=== PATIENT | female | born 1995 | race Caucasian/White ===

== ENCOUNTER 2017-08-15 01:02 | Emergency (ER) | payer SELFPAY ==
[~2017-08-15] VITALS: Ht 160 cm; Wt 57.0 kg
[2017-08-15 01:07] VITALS: TEMP 37; Ht 160 cm; Wt 57.0 kg
[2017-08-15] MEDS ORDERED: CEFTRIAXONE SOD INJ 1 GM ADDVIAL IV STA (01:22)
[2017-08-15] MEDS ORDERED: LORAZEPAM 2 MG/ML 1 ML VIAL IV STA (01:41)
[2017-08-15] MEDS ORDERED: BUPIVACAINE 0.5 % 5 MG/1 ML MPF 30ML VIAL INFIL ONE (01:45)
[2017-08-15] MEDS ORDERED: XYLOCAINE 1%/SOD BICARB 20 ML VIAL INFIL ONE (01:45)
[2017-08-15 01:48] LABS: BASO % 0.4 %; BASO ABS # 0.04 K/uL (0-0.2); COMPLETE YES; EOS % 0.3 %; HEMATOCRIT 39.7 % (37-47); IG% 0.2 %; LYMPH ABS # 4.41 K/uL (1.2-3.4); MEAN CELL VOLUME 83.6 fL (80-100); MEAN CORPUSCULAR HEMOGLOBIN 26.9 pg (25-34); MEAN CORPUSCULAR HGB CONC 32.2 g/dl (32-36); MONO % 6.2 %; NEUT % 46.9 %; PLATELET COUNT 292 K/uL (130-400); RED BLOOD COUNT 4.75 M/uL (4.2-5.4); WHITE BLOOD COUNT 9.59 K/uL (4.8-10.8)
[2017-08-15] MEDS ORDERED: MoRPHine SULFATE 4 MG/ML 1 ML CARP\\VIAL IV ONE (02:15)
[2017-08-15 02:19] LABS: ALB/GLOB RATIO 0.9 (0.9-2); BUN/CREATININE RATIO 18.4 (10-20); CALCIUM 9.3 mg/dl (8.5-10.1); CREATININE 0.83 mg/dl (0.60-1.20)
[2017-08-15] MEDS ORDERED: BCPILLS PO (02:27)
[2017-08-15 03:30] VITALS: PULSE 100; O2SAT 98
--- NOTE | 2017-08-15 04:08 | Medical Consult ---
Consultation Note Date of Service Aug 15, 2017. Consultation Note CHIEF COMPLAINT: Left middle and ring finger injuries. 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 She was brought to the hospital by EMS. I was consult did due to the loss of the tips of the fingers which were brought in to the hospital as well as. She is right-hand dominant. Past medical history: Denies. past surgical history: Oral surgery. MEDICATIONS: control. ALLERGIES: Penicillin and amoxicillin. FAMILY HISTORY: Noncontributory. SOCIAL HISTORY: She is a [employer] student from [place]. Denies smoking. Admits occasional alcohol use. REVIEW OF SYSTEMS: Prior to this incident, she was feeling in her usual health. A 10-point review of systems from the ER is noted in the medical record. PHYSICAL EXAM: Patient is anxious, but in no acute distress breathing easily at 18 breaths per minute. The patient ambulates with a normal gait. They have an appropriate mood and affect. They weigh 57 kg and are 160 cm tall. Focusing on her left middle and ring fingers, she has transverse amputations of the distal tips with significant loss of the nail-bed of the ring finger. There is no active bleeding. Her sensation to light touch is intact up to the lacerations. She is able to flex at the DIP and PIP joints as well as have full extension. There is obvious exposed bone. The tips which were mostly skin and subcutaneous fat, were brought in and bags on ice with some of the nail -bed attached to both pieces. There is some bone in both is well. RADIOGRAPHS: Show comminuted distal phalanx fractures of the middle and ring finger. IMPRESSION: Partial transverse amputation involving the nailbed of both the left and middle fingers, open tuft fractures, emergency room and initial visit. PLAN: After a lengthy discussion with the patient regarding my above clinical findings, as well as reviewing her radiographs, I explained the importance of performing an irrigation and debridement and covering the bone. She understands that the bone may need to be shortened to allow soft tissue coverage. The risks of the procedure were discussed and include but not limited to: Infection, bleeding, nerve damage, continued pain, possible need for additional surgery. She wished to proceed with the procedure and the informed consent was obtained by myself and signed by the patient. She was given Rocephin by the emergency room and will be continued on Zithromax for 5 days. For further details of the partial completion amputation, irrigation and debridement as well as a complex wound closure utilizing the tips of the finger for grafting purposes, please refer to my dictated operative report. She will follow-up in one week. She will ice and elevate and utilize pain medicine. She will avoid strenuous activities for the time being. The patient understood all my instructions and explanation; all their questions were satisfactorily addressed.
[2017-08-15] MEDS ORDERED: AZITTAB PO (04:10)
[2017-08-15 04:13] VITALS: BP 119/64
--- NOTE | 2017-08-15 04:14 | [facility] Operative Report ---
Operative Report Operative Date Aug 15, 2017. Pre-Operative Diagnosis Open Tuft fractures Left Middle and Ring Fingers Post-Operative Diagnosis Same Procedure(s) Performed 1) Partial completion amputations Left Middle Finger. 2) Partial complation amputation Left Ring Finger. 3) Complex wound closure using pinch graft, amputated finger tips x 2. 4) Repair L MF nailbed. 5) Irrigation and debridment L MF & L RF. Surgeon Dr. Craig Gauge Maker Apprentice Surgeon(s) Salma London PA-C (No fellow avail) Estimated Blood Loss 5 cc Findings Transverse amputations with exposed bone L MF & L RF. More extensive loss of nail bed from L RF. Remaining L MF had a laceration in the nail bed. There is no active bleeding. Her sensation to light touch is intact up to the lacerations. She is able to flex at the DIP and PIP joints as well as have full extension. There is obvious exposed bone. The tips which were mostly skin and subcutaneous fat, were brought in and bags on ice with some of the nail-bed attached to both pieces. There is some bone in both is well. Specimens n/a Drains n/a Anesthesia Digital blocks Complication(s) None Disposition ER bed Indications The patient had an acute injury to her left middle and ring fingers resulting in traumatic distal tip amputations and open tuft fractures. The patient understands the risks of surgery, which include but are not limited to: bleeding , infection, re-operation, damage to nerves and arteries, and continued pain. The patient understands all of these instructions and explanations, all of their questions have been satisfactorily addressed. The patient has elected to proceed with surgery and the informed consent administered by myself was signed. Description of Procedure After a multidisciplinary time-out was performed identifying left middle and ring fingers as the correct and operative limb, a digital block was performed in the standard fashion after prepping the metacarpal heads of each with Betadine using a total of 10 cc of 1% lidocaine plain and half percent Marcaine plain in a 50-50 mixture. The emergency room staff had given the patient Rocephin just prior to initiating the procedure. The left middle and ring fingers were prepped and draped in the usual Orthopaedic sterile fashion. The the left middle and ring fingers were copiously irrigated with dilute Betadine solution followed by copious amounts of normal saline. The avulsed tips were prepped by removing any bone and fat sharply with the scalpel and tenotomy scissors, and Rongeur. The avascular nail-bed was also removed sharply with a scalpel, leaving to grafts to place over the tips of each finger. The ring finger was performed first and some of the fragments of bone within the soft tissue as well as the main distal phalanx was shortened slightly to allow soft tissue coverage. The skin graft was sutured over top of the wound using 4-0 chromic. A false nail with aluminum foil from the sterile packaging was created and also sutured in place with 4-0 chromic, to allow for the new nail to grow if possible. The middle finger was performed next and required a little less bone removal from the distal phalanx. There was a small longitudinal laceration with in the nail-bed that was repaired with 4-0 chromic. The skin graft was sutured over top of the wound using 4-0 chromic. A false nail with aluminum foil from the sterile packaging was created and also sutured in place with 4-0 chromic, to allow for the new nail to grow if possible. The wounds were covered Xeroform, 2 x 2's, sterile 2 inch Joey, and Coban and guille taping the 2 fingers together. The sponge and needle counts were correct. POST-OP: Patient will follow-up in one week for reevaluation. She will utilize Tylenol and anti-inflammatories for pain. She will ice and elevate. She will complete a 5 day course of Zithromax. I attest to the content of the Intraoperative Record and any orders documented therein. Any exceptions are noted below.
[2017-08-15] MEDS ORDERED: NORCO 5/325MG HOME PACK PO ONE (04:30)
--- NOTE | 2017-08-15 06:48 | DIAGNOSTIC IMAGING REPORT ---
L HAND MIN 3 VIEWS ROUTINE CLINICAL HISTORY: Finger tip amputation TRAUMA. HAND SMASHED IN DOOR. COMPARISON: None. DISCUSSION: There are traumatic amputations involving the perez of the distal phalanges of the third and fourth fingers. Small fracture fragments are visualized. There is a soft tissue defect. IMPRESSION: Traumatic amputations involving the distal perez of the distal phalanges of the third and fourth fingers. Electronically signed by: Kwasi Melendez M.D. 08/15/2017 6:46 AM Dictated Date/Time: 08/15/2017 6:45 AM
--- NOTE | 2017-08-16 00:06 | EMERGENCY ROOM VISIT NOTE ---
History First contact with patient: 01:09 Chief Complaint: HAND PAIN/INJURY Stated Complaint: HAND INJURY History of Present Illness The patient is a 21 year old female who presents to the Emergency Room with complaints of injury to her left third and fourth digits that occurred approximately 30 minutes prior to arrival. The patient was drinking at a local fraternity, and evidently a very large door was closed onto her left hand. This has resulted in amputation of the distal ends of the left third and fourth digits. The patient is reportedly up-to-date on her tetanus. She rates her current discomfort a 1/10 and does not wish for pain medication at this time. She is able to open and close the hand and has not had similar injury in the past. Her last meal was approximately 5 hours ago. She had been drinking up until the last half hour. She is right-hand dominant. Review of Systems More than 10 systems were reviewed and otherwise negative with the exception of history of present illness. Past Medical/Surgical History No chronic medical disease Family History No pertinent family history Social History Smoking Status: Never Smoker Occupation Status: [employer] student Current/Historical Medications Scheduled Azithromycin (Zithromax Z-Dale), 0 PO UD Control Pills ( Control Pills), 1 TAB PO DAILY Physical Exam Vital Signs Date Time Temp Pulse Resp B/P (MAP) Pulse Ox O2 Delivery O2 Flow Rate FiO2 08/15/17 04:13 119/64 08/15/17 04:01 119/64 08/15/17 04:01 119/64 08/15/17 03:30 100 18 110/50 98 Room Air 08/15/17 03:00 120 18 117/60 98 Room Air 08/15/17 02:30 130 18 114/83 08/15/17 01:07 37.0 115 18 123/95 98 Room Air Physical Exam VITALS: Vitals are noted on the nurse's note and reviewed by myself. Vital signs stable. GENERAL: Well-developed, well-nourished, mildly intoxicated and anxious- appearing female who is cooperative with the examination. HEART: Regular rate and rhythm without murmurs gallops or rubs. LUNGS: Clear to auscultation bilaterally without wheezes, rales or rhonchi. No retractions or accessory muscle use. MUSCULOSKELETAL: There is obvious transverse amputation to the distal ends of the left third and fourth digits with exposed bone. The fingernails are absent and the indication appears just distal to the nail beds on each of the fingers. The patient is able to flex and extend at the proximal and distal joints. Sensation is intact throughout. There is minimal persistent bleeding. No other injuries noted. NEURO: Patient was alert and oriented to person place and time. CN II through XII grossly intact. Medical Decision & Procedures ER Provider Diagnostic Interpretation: L HAND MIN 3 VIEWS ROUTINE CLINICAL HISTORY: Finger tip amputation TRAUMA. HAND SMASHED IN DOOR. COMPARISON: None. DISCUSSION: There are traumatic amputations involving the perez of the distal phalanges of the third and fourth fingers. Small fracture fragments are visualized. There is a soft tissue defect. IMPRESSION: Traumatic amputations involving the distal perez of the distal phalanges of the third and fourth fingers. Laboratory Results 08/15/17 01:40 Red Blood Count 4.75, Mean Corpuscular Volume 83.6, Mean Corpuscular Hemoglobin 26.9, Mean Corpuscular Hemoglobin Concent 32.2, Mean Platelet Volume 9.0, Neutrophils (%) (Auto) 46.9, Lymphocytes (%) (Auto) 46.0, Monocytes (%) (Auto) 6.2, Eosinophils (%) (Auto) 0.3, Basophils (%) (Auto) 0.4, Neutrophils # (Auto) 4.50, Lymphocytes # (Auto) 4.41, Monocytes # (Auto) 0.59, Eosinophils # (Auto) 0.03, Basophils # (Auto) 0.04 08/15/17 01:40 Test 08/15/17 01:40 White Blood Count 9.59 K/uL (4.8-10.8) Red Blood Count 4.75 M/uL (4.2-5.4) Hemoglobin 12.8 g/dL (12.0-16.0) Hematocrit 39.7 % (37-47) Mean Corpuscular Volume 83.6 fL (80-100) Mean Corpuscular Hemoglobin 26.9 pg (25-34) Mean Corpuscular Hemoglobin Concent 32.2 g/dl (32-36) Platelet Count 292 K/uL (130-400) Mean Platelet Volume 9.0 fL (7.4-10.4) Neutrophils (%) (Auto) 46.9 % Lymphocytes (%) (Auto) 46.0 % Monocytes (%) (Auto) 6.2 % Eosinophils (%) (Auto) 0.3 % Basophils (%) (Auto) 0.4 % Neutrophils # (Auto) 4.50 K/uL (1.4-6.5) Lymphocytes # (Auto) 4.41 K/uL (1.2-3.4) Monocytes # (Auto) 0.59 K/uL (0.11-0.59) Eosinophils # (Auto) 0.03 K/uL (0-0.5) Basophils # (Auto) 0.04 K/uL (0-0.2) RDW Standard Deviation 42.0 fL (36.4-46.3) RDW Coefficient of Variation 13.9 % (11.5-14.5) Immature Granulocyte % (Auto) 0.2 % Immature Granulocyte # (Auto) 0.02 K/uL (0.00-0.02) Anion Gap 12.0 mmol/L (3-11) Est Creatinine Clear Calc Drug Dose 90.2 ml/min Estimated GFR () 118.5 Estimated GFR (Non- 102.2 BUN/Creatinine Ratio 18.4 (10-20) Calcium Level 9.3 mg/dl (8.5-10.1) Total Bilirubin 0.4 mg/dl (0.2-1) Aspartate Amino Transf (AST/SGOT) 19 U/L (15-37) Alanine Aminotransferase (ALT/SGPT) 18 U/L (12-78) Alkaline Phosphatase 47 U/L (45-117) Total Protein 8.5 gm/dl (6.4-8.2) Albumin 4.1 gm/dl (3.4-5.0) Globulin 4.4 gm/dl (2.5-4.0) Albumin/Globulin Ratio 0.9 (0.9-2) Chemistry Specimen Hemolysis Medications Administered Medications (Trade) Dose Ordered Sig/Dariusz Route Start Time Stop Time Status Last Admin Dose Admin Ceftriaxone Sodium (Rocephin Inj) 1 gm NOW STAT IV 08/15/17 01:22 08/15/17 01:24 DC 08/15/17 01:52 1 GM Lorazepam (Ativan Inj) 0.5 mg NOW STAT IV 08/15/17 01:41 08/15/17 01:44 DC 08/15/17 01:52 0.5 MG Morphine Sulfate (MoRPHine SULFATE INJ) 4 mg NOW ONCE IV 08/15/17 02:15 08/15/17 02:16 DC 08/15/17 02:24 4 MG Acetaminophen/ Hydrocodone Bitart ([place] 5/325mg Home Pack) 1 homepack UD ONCE PO 08/15/17 04:30 08/15/17 04:31 DC 08/15/17 04:50 1 HOMEPACK ED Course Physical exam and history were performed. Nursing notes, EMR, and Medication List were personally reviewed. Patient appears to have suffered traumatic amputation to the distal ends of the left third and fourth digits. IV access was established and labs were obtained. The patient was given IV Rocephin here in the department as she is allergic to penicillins. X-rays were performed and do confirm dramatic amputation with bony involvement. The patient's blood work is as above and was reviewed. She does not have a significantly elevated white blood cell count, worsening anemia, bandemia or significant electrolyte imbalance. The patient did require a small amount of pain medication and Ativan here in the department for comfort. The case was discussed with orthopedics, Dr. Craig, who evaluated the patient here in the emergency department. The distal amputated digits were found by local police and brought to the emergency department on ice. Dr. Craig spent significant time performing a surgical repair of the patient's digits, and she tolerated this well. Please see his dictation for specifics regarding his evaluation and treatment. The patient remained in stable condition throughout her ER stay. She will receive antibiotics by orthopedics. I will give her a home pack of Vicodin for pain control tonight. The patient should otherwise use ibuprofen and Tylenol. The patient understands the importance of monitoring for signs of infection. She should return to the ER immediately with any new or worsening symptoms. She is to follow up as instructed by orthopedics and call them in a few hours when the office opens. She rated her discomfort a 1/10 at the time of departure and was discharged home under the care of 2 of her roommates. The chart was completed utilizing [employer] Voice [employer]ognition Software. Grammatical errors, random word insertions, pronoun errors, and incomplete sentences are an occasional consequence of this system due to software limitations, ambient noise, and hardware issues. Any formal questions or concerns about the content, text, or information contained within the body of this dictation should be directly addressed to the provider for clarification. . Medical Decision Differential diagnosis includes, but is not limited to: Sprain, strain, fracture , dislocation, contusion, open fracture, amputation, and others Impression Primary Impression: Partial traumatic transphalangeal amputation of finger Departure Information Dispostion Home / Self-Care Condition FAIR Prescriptions Azithromycin (ZITHROMAX Z-DALE) 250 Mg Tab 0 PO UD, #1 PKT 2 TABS DAY 1, THEN 1 TAB DAILY FOR 4 DAYS Prov: Brad London,P.A. 08/15/17 Referrals Rick Craig MD No Doctor, Assigned (PCP) Forms HOME CARE DOCUMENTATION FORM, MOTRIN USE, TYLENOL USE, IMPORTANT VISIT INFORMATION Patient Instructions My [facility] Additional Instructions ice and elevate the fingers frequently to reduce pain/swelling keep the bandage clean/dry. Do not get it wet when bathing avoid lifting with the left hand call [facility] orthopedics (Dr. Craig) in the morning for follow up in a week Start your Zithromax today with lunch-take it daily x 5 days take ibuprofen and tylenol every 6 hours as needed for pain call Dr. Craig's office for any other questions/concerns.
== END 2017-08-15 04:51 | disposition home or self-care (01) ==
LOC: EDBD 01:02 → C.EDB 01:04
DX: S68.623A Partial traumatic transphalangeal amputation of left middle finger, initial encounter (principal); S68.625A Partial traumatic transphalangeal amputation of left ring finger, initial encounter; W23.0XXA Caught, crushed, jammed, or pinched between moving objects, initial encounter; Y92.89 Other specified places as the place of occurrence of the external cause; Z79.3 Long term (current) use of hormonal contraceptives

== ENCOUNTER 2017-09-28 13:08 | Emergency (ER) | payer BC ==
[~2017-09-28] VITALS: Ht 165.1 cm; Wt 55.0 kg
[~2017-09-28 13:08] MED LIST: BCPILLS PO
[2017-09-28 13:12] VITALS: Ht 165.1 cm; Wt 55.0 kg
--- NOTE | 2017-09-28 13:49 | EMERGENCY ROOM VISIT NOTE ---
History First contact with patient: 13:18 Chief Complaint: FEVER Stated Complaint: FEVER, SORETHROAT, WEAKNESS History of Present Illness The patient is a 22 year old female who presents to the Emergency Room with complaints of fever which began last night. The patient states that she developed a fever and sore throat yesterday evening. She reports her temperature was up to 101.5F last night. She felt weak this morning and had a difficult time getting out of bed. She denies any headache, earaches, cough, nasal congestion, abdominal pain, nausea or vomiting. She took Advil last night but nothing this morning for the fever. The patient reports that she had an injury to the left third and fourth digits last month and had surgery here. She has been following up closely with orthopedics. She does admit that yesterday, one of her bandages fell off and her finger was exposed to cold for approximately 3 hours. She denies any pain in the fingers, redness or swelling. She rates her overall discomfort a 7/10. She reports a history of a tonsillectomy. The patient also reports that her menstrual period is 3 days late. She does take control pills but states that she occasionally does miss pills. Review of Systems A complete 10 point review of systems was reviewed with the patient with pertinent positives and negatives as per history of present illness. All else were negative. Social History Smoking Status: Never Smoker Occupation Status: [employer] student Current/Historical Medications Scheduled Control Pills ( Control Pills), 1 TAB PO DAILY Physical Exam Vital Signs Date Time Temp Pulse Resp B/P (MAP) Pulse Ox O2 Delivery O2 Flow Rate FiO2 09/28/17 14:16 37.1 90 16 120/64 100 09/28/17 13:12 37.4 101 20 103/67 96 Room Air Physical Exam VITALS: Vitals are noted on the nurse's note and reviewed by myself. Vital signs stable. GENERAL: This is a 22-year-old female, in no acute distress, nondiaphoretic, well-developed well-nourished. SKIN: The skin was without rashes. EARS: External auditory canals clear, tympanic membranes pearly manriquez without erythema or effusion bilaterally. EYES: Pupils equal round and reactive to light and accommodation. Conjunctivae without injection, sclerae without icterus. NOSE: Patent, turbinates without inflammation or discharge. MOUTH: Mucous membranes moist. Tonsils are surgically absent. There is no erythema of the posterior oropharynx. No exudate present. NECK: Supple without nuchal rigidity. There are a few mildly swollen right sided anterior cervical lymph nodes. HEART: Regular rate and rhythm without murmurs gallops or rubs. LUNGS: Clear to auscultation bilaterally without wheezes, rales or rhonchi. MUSCULOSKELETAL: There are healing wounds to the distal aspects of the left third and fourth digits with some nonviable skin present which is dark in color. There is no surrounding erythema or edema. NEURO: Patient was alert and oriented to person place and time. Medical Decision & Procedures Laboratory Results Test 09/28/17 13:38 Urine Test NEG (NEG) Medical Decision Differential diagnosis includes strep pharyngitis, mononucleosis, influenza, viral syndrome, among others. The patient was evaluated as above. There is no obvious evidence of infection on exam. The patient had a recent fingertip amputation approximately one month ago. This appears to be healing well and there is no evidence of infection on exam. Patient was encouraged to continue to follow-up with her orthopedist regarding this. Strep swab was performed and was negative. Urine test was negative. Patient likely has a viral illness and was advised to use Tylenol and ibuprofen as needed for fevers and pain. She was instructed to follow-up with [facility] as needed for any worsening or concerning symptoms. She verbalized understanding of my assessment and treatment plan and was discharged home in good condition. Medication Reconcilliation Current Medication List: was personally reviewed by pr Blood Pressure Screening Patient's blood pressure: Normal blood pressure Impression Primary Impression: Sore throat Departure Information Dispostion Home / Self-Care Condition GOOD Referrals No Doctor, Assigned (PCP) Patient Instructions My [facility] [address] Additional Instructions For pain/fever control, you can use the following [id number] medicines ( if >12 yo): - Regular strength (325mg/tab) Tylenol (acetaminophen) 2 tabs every 4-6 hours as needed. Do not exceed 12 tablets in a 24 hour period. Avoid taking more than 4 grams (4000 mg) of Tylenol per day. This includes any other sources of acetaminophen you may take on a regular basis. - Regular strength (200 mg/tab) Advil (ibuprofen) 3 tabs every 4-6 hours as needed. Do not exceed a dose of 3200 mg per day. Follow-up with [facility] this week if you have any persistent or worsening symptoms for further testing. Follow-up with orthopedics as scheduled. Return to the emergency department with any significantly worsening or new/ concerning symptoms.
[2017-09-28 14:16] VITALS: BP 120/64; PULSE 90; TEMP 37.1; O2SAT 100
== END 2017-09-28 14:15 | disposition home or self-care (01) ==
LOC: C.EDB 13:09
DX: J02.9 Acute pharyngitis, unspecified (principal); Z79.3 Long term (current) use of hormonal contraceptives